=== PATIENT | female | born 1970 | race Caucasian/White ===

== ENCOUNTER → 2018-07-27 | Outpatient (CLI) | payer OTHER, SELFPAY ==
[~2018-07-27] MED LIST: ACETAMINOPHEN-1 EAC1 PO; CALCIUM 600 +1 EAC8 PO; FISH OIL 1,0001 EAC5 PO; NOHOMEMEDICATIONS; ZOFRAN ODT4 MG PO
== END ==
LOC: RAD 09:49
DX: Z12.31 Encounter for screening mammogram for malignant neoplasm of breast (principal)